=== PATIENT | female | born 1990 | race Caucasian/White ===

== ENCOUNTER 2023-04-05 20:19 | Emergency (ER) | payer OTHER ==
[2023-04-05 20:33] VITALS: BP 109/58; PULSE 62; RESP 19; TEMP 98.8; BMI 28.1
[2023-04-05 22:27] LABS: BASO % 0.6 % (0-2.0); EOS % 1.9 % (0-4.5); HEMATOCRIT 37.8 % (32.4-45.2); HEMOGLOBIN 12.6 GM/dL (10.7-15.3); LYMPH % 31.9 % (8-40); MCHC 33.5 g/dl (32.0-36.0); MEAN CELL VOLUME 89.5 fl (80-96); MEAN PLT VOLUME 9.3 fl (7.5-11.1); MONO % 8.9 % (3.8-10.2); NEUT % 56.7 % (42.8-82.8); PLATELET COUNT 227 10^3/uL (134-434); RBC 4.22 M/mm3 (3.60-5.2); RDW 12.7 % (11.6-15.6); WHITE BLOOD COUNT 6.3 K/mm3 (4.0-10.0)
[2023-04-05 22:46] LABS: POTASSIUM 4.5 mmol/L (3.5-5.1)
[2023-04-05 22:48] LABS: CALCIUM 9.7 mg/dL (8.5-10.1)
[2023-04-05 22:49] LABS: ALBUMIN 3.8 g/dl (3.4-5.0); BLOOD UREA NITROGEN 11.4 mg/dL (7-18)
[2023-04-05 22:52] LABS: CREATININE 0.7 mg/dL (0.55-1.3)
[2023-04-05 22:53] LABS: BILIRUBIN,TOTAL 0.3 mg/dL (0.2-1)
[2023-04-05] MEDS ORDERED: LIDOCAINE 5% TOPICAL PATCH TP ONE (23:45)
[2023-04-05] MEDS ORDERED: IBUPROFEN 400 MG TABLET (FP) PO ONE (23:45)
[2023-04-06] MEDS ORDERED: LIDOCAINE PATCH REMOVAL MC ONE (12:00)
== END 2023-04-06 00:01 | disposition home or self-care (01) ==
LOC: JER 20:19
DX: R10.30 Lower abdominal pain, unspecified (principal); R07.9 Chest pain, unspecified; S39.012A Strain of muscle, fascia and tendon of lower back, initial encounter; X58.XXXA Exposure to other specified factors, initial encounter; Z20.822 Contact with and (suspected) exposure to COVID-19
CPT/HCPCS: 0241U-QW; 36415; 71046-TC-FY; 72070-TC-FY; 80053; 83690; 84703; 85025; 93005; 93010; 99284-25

== ENCOUNTER 2023-09-05 23:07 | Emergency (ER) | payer OTHER ==
[2023-09-05 23:21] VITALS: BP 107/54; PULSE 98; RESP 18; TEMP 97.5; BMI 27.1
[2023-09-05] MEDS ORDERED: SODIUM CHLORIDE 0.9% 500 ML INFUS.BAG IV ONE (23:32)
[2023-09-05] MEDS ORDERED: MAG HYDROX/AL HYDROX/SIMETH 30 ML UNIT-DOSE CUP PO ONE (23:32)
[2023-09-05] MEDS ORDERED: ACETAMINOPHEN 1000 MG/100 ML BAG IVPB ONE (23:32)
[2023-09-05] MEDS ORDERED: ONDANSETRON 4 MG/2 ML VIAL IVPUSH ONE (23:32)
[2023-09-05] MEDS ORDERED: FAMOTIDINE 20 MG/50 ML IVPB 20 MG/50 ML MG IVPB ONE (23:32)
[2023-09-05 23:59] LABS: BASO % 0.1 % (0-2.0); EOS % 0.5 % (0-4.5); HEMATOCRIT 41.6 % (32.4-45.2); HEMOGLOBIN 14.3 GM/dL (10.7-15.3); LYMPH % 3.9 % (8-40); MCH 30.6 pg (25.7-33.7); MCHC 34.3 g/dl (32.0-36.0); MEAN CELL VOLUME 89.2 fl (80-96); MEAN PLT VOLUME 9.9 fl (7.5-11.1); MONO % 5.1 % (3.8-10.2); NEUT % 90.4 % (42.8-82.8); PLATELET COUNT 233 10^3/uL (134-434); RBC 4.66 M/mm3 (3.60-5.2); RDW 12.9 % (11.6-15.6); WHITE BLOOD COUNT 15.6 K/mm3 (4.0-10.0)
[2023-09-06] MEDS ORDERED: ONDANSETRON 4 MG/2 ML VIAL ONE (00:04)
[2023-09-06] MEDS ORDERED: ACETAMINOPHEN INJECTION 100 ML IVPB ONE (00:04)
[2023-09-06] MEDS ORDERED: FAMOTIDINE 20 MG/50 ML IVPB 20 MG/50 ML MG IVPB ONE (00:04)
[2023-09-06] MEDS ORDERED: MAG HYDROX/AL HYDROX/SIMETH 30 ML UNIT-DOSE CUP ONE (00:04)
[2023-09-06 00:15] LABS: POTASSIUM 4.4 mmol/L (3.5-5.1)
[2023-09-06 00:17] LABS: CALCIUM 9.2 mg/dL (8.5-10.1)
[2023-09-06 00:18] LABS: ALBUMIN 4.1 g/dl (3.4-5.0); BLOOD UREA NITROGEN 10.7 mg/dL (7-18)
[2023-09-06 00:21] LABS: CREATININE 0.8 mg/dL (0.55-1.3)
[2023-09-06 00:22] LABS: BILIRUBIN,TOTAL 0.5 mg/dL (0.2-1); TOT PROT 7.5 g/dl (6.4-8.2)
[2023-09-06] MEDS ORDERED: SODIUM CHLORIDE 0.9% 500 ML INFUS.BAG IV ONE (02:29)
[2023-09-06] MEDS ORDERED: SUCRALFATE 1 GM TABLET (FP) PO ONE (02:44)
[2023-09-06] MEDS ORDERED: SUCRALFATE 1 GM TABLET (FP) ONE (02:49)
[2023-09-06 03:15] LABS: PH,URINE 5.5 (5.0-8.0); URINE APPEARANCE CLEAR; URINE BILIRUBIN NEGATIVE (NEGATIVE); URINE COLOR YELLOW; URINE GLUCOSE (UA) NEGATIVE (NEGATIVE); URINE KETONE 1+ (NEGATIVE); URINE LEUK ESTERASE NEGATIVE (NEGATIVE); URINE NITRITE NEGATIVE (NEGATIVE); URINE PROTEIN NEGATIVE (NEGATIVE); URINE UROBILINOGEN 0.2 mg/dL (0.2-1.0)
[2023-09-06] MEDS ORDERED: KETOROLAC TROMETHAMINE 15 MG/ML VIAL IVPUSH ONE (03:36)
[2023-09-06] MEDS ORDERED: KETOROLAC TROMETHAMINE 15 MG/ML VIAL ONE (03:57)
== END 2023-09-06 05:03 | disposition home or self-care (01) ==
LOC: JER 23:07
PROC: 3E033NZ Introduction of Analgesics, Hypnotics, Sedatives into Peripheral Vein, Percutaneous Approach (ICD-10-PCS; 2023-09-05)
PROC: 3E033GC Introduction of Other Therapeutic Substance into Peripheral Vein, Percutaneous Approach (ICD-10-PCS; principal; 2023-09-06)
PROC: 3E0333Z Introduction of Anti-inflammatory into Peripheral Vein, Percutaneous Approach (ICD-10-PCS; 2023-09-06)
PROC: 3E033GC Introduction of Other Therapeutic Substance into Peripheral Vein, Percutaneous Approach (ICD-10-PCS; 2023-09-06)
DX: T62.91XA Toxic effect of unspecified noxious substance eaten as food, accidental (unintentional), initial encounter (principal); R10.9 Unspecified abdominal pain; R11.12 Projectile vomiting; R19.7 Diarrhea, unspecified; R42 Dizziness and giddiness
CPT/HCPCS: 0241U-QW; 36415; 80053; 81003; 83690; 84703; 85025; 87086; 93005; 93010; 99284-25

== ENCOUNTER 2023-11-05 10:18 | Emergency (ER) | payer OTHER ==
[2023-11-05 14:22] VITALS: BP 106/62; PULSE 102; RESP 18; TEMP 98.9; BMI 27.4
== END 2023-11-05 11:39 | disposition home or self-care (01) ==
LOC: JER 10:18
DX: R50.9 Fever, unspecified (principal); M79.10 Myalgia, unspecified site; J02.9 Acute pharyngitis, unspecified; R05.9 Cough, unspecified; R53.83 Other fatigue; J10.1 Influenza due to other identified influenza virus with other respiratory manifestations; Z20.822 Contact with and (suspected) exposure to COVID-19
CPT/HCPCS: 0241U-QW; 99283-25